=== PATIENT | female | born 1995 | race African-American/Black ===

== ENCOUNTER 2020-09-26 23:42 | Emergency (ER) | payer OTHER, MEDICAID ==
[~2020-09-26] VITALS: Ht 177.8 cm; Wt 84.0 kg
[2020-09-26 23:45] VITALS: BP 150/100
== END 2020-09-27 00:42 | disposition home or self-care (01) ==
LOC: ER 23:42
DX: R44.1 Visual hallucinations (principal); Z86.59 Personal history of other mental and behavioral disorders
CPT/HCPCS: 99283